=== PATIENT | male | born 1965 | race African-American/Black ===

== ENCOUNTER 2017-06-26 09:07 | Emergency (ER) | payer OTHER ==
[~2017-06-26] VITALS: Ht 190.5 cm; Wt 95.8 kg
[2017-06-26 09:58] LABS: EOSINOPHIL (%) 0.5 % (0-5); IMMATURE GRANULOCYTE (%) 0.4 % (0.0-0.7); INSTRUMENT ABS NEUTROPHIL CT 5.9 K/uL; MCH 31.3 PG (29.0-34.0); MCHC 34.4 G/DL (30.0-36.0); MCV 90.7 FL (86-99); MEAN PLAT.VOLUME 10.8 uM^3 (9.0-12.4); MONOCYTE (%) 6.9 % (3-12); MONOCYTE COUNT 0.5 K/uL (0-0.8); NEUTROPHIL (%) 78.7 % (45-76); NEUTROPHIL COUNT 5.9 K/uL (1.8-6.4); PLATELET COUNT 170 K/uL (156-360); RBC DIS.WIDTH-CV 11.7 % (11.8-14.6); RBC DIS.WIDTH-SD 38.9 % (39-53); RED BLOOD COUNT 4.96 M/uL (4.00-5.50); WHITE BLOOD COUNT 7.5 K/uL (4.1-10.2)
[2017-06-26 10:09] LABS: CHLORIDE 103 mEq/L (99-109); POTASSIUM 4.2 mEq/L (3.7-5.4); SODIUM 141 mEq/L (136-147)
[2017-06-26 10:11] LABS: GLUCOSE 143 mg/dL (70-99)
[2017-06-26 10:12] LABS: ANION GAP 11 MEQ/L (2-14)
[2017-06-26 10:13] LABS: TOTAL BILIRUBIN 1.8 mg/dL (0.0-1.0)
[2017-06-26 10:14] LABS: ALKALINE PHOSPHATASE 78 IU/L (3-129)
[2017-06-26 10:15] LABS: GFR ESTIMATE (CALCULATED) 48 mL/min/
[2017-06-26 10:16] LABS: UREA NITROGEN (BUN) 16 mg/dL (9-23)
[2017-06-26 10:18] LABS: LIPASE 20 U/L (1.0-51.0)
[2017-06-26 11:56] LABS: ADD MIUA? YES; BILIRUBIN NEGATIVE; BLOOD MODERATE; COLOR YELLOW ((YELLOW)); GLUCOSE (STRIP) NEGATIVE; KETONES NEGATIVE; LEUKOCYTES NEGATIVE; NITRITE NEGATIVE; PROTEIN (STRIP) 30; UROBILINOGEN 0.2 MG/DL (0.2-1.0)
[2017-06-26 12:17] LABS: EPITHELIAL CELLS NONE SEEN /HPF; RED BLOOD CELLS RARE /HPF (0-5); WHITE BLOOD CELLS NONE SEEN /HPF (0-5)
[2017-06-26 12:18] LABS: BACTERIA RARE /HPF; MUCUS 3+ /LPF; UCUL ADDED? NO
[2017-06-26 15:28] VITALS: BP 109/67
== END 2017-06-26 16:14 | disposition short-term general hospital (02) ==
LOC: EME 09:07 → EDBD 09:07 → EME 09:07
PROVIDERS: Emergency Medicine
DX: N13.2 Hydronephrosis with renal and ureteral calculous obstruction (principal); N28.9 Disorder of kidney and ureter, unspecified; R00.1 Bradycardia, unspecified; I10 Essential (primary) hypertension; K21.9 Gastro-esophageal reflux disease without esophagitis; Z87.891 Personal history of nicotine dependence
CPT/HCPCS: 74176; 80053; 81003; 83690; 85025; 93005; 99281; 99285; J1885; J2270; J2405; J7030